=== PATIENT | female | born 1970 | race Hispanic/Latino ===

== ENCOUNTER 2018-01-04 03:02 | Emergency (ER) | payer BC ==
[2018-01-04 03:29] VITALS: RESP 18; O2SAT 100
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
[2018-01-04 09:00] VITALS: BP 122/76; PULSE 78; TEMP 98
== END 2018-01-04 09:01 | disposition home or self-care (01) ==
LOC: H.ER 03:02
DX: S09.93XA Unspecified injury of face, initial encounter (principal); Y04.0XXA Assault by unarmed brawl or fight, initial encounter; Y92.89 Other specified places as the place of occurrence of the external cause; F43.20 Adjustment disorder, unspecified